=== PATIENT | male | born 1955 | race Caucasian/White ===

== ENCOUNTER → 2024-02-27 | Day surgery (SDC) | payer MEDICARE, MEDICAID ==
[~2024-02-27] VITALS: Ht 180.3 cm; Wt 94.8 kg
[~2024-02-27] MED LIST: ACET-2424; ACETAMINOPHEN 325MG TABLET PO PRN; AMOX1TAB16 PO; ASPI-1406 PO; ATEN-42 PO; ATOR40TA70 PO; CIPR-263 PO; CLOP-31 PO; COLL30OI TP; DIPHENHYDRAMINE 50MG/ML VIAL ONE; EMPA25TA PO; EZET10TA81; FENTANYL CITRATE/PF 50MCG/ML 2ML VIAL ONE; GABA-532 PO; HEPARIN 1000 UNITS/ML 10ML ONE; IODIXANOL 320MG/ML 100 ML BOTTLE IV ONE; LIDOCAINE HCL 1% 10 MG/ML 10ML VIAL ONE; LORA10TA7 PO; LOSA100T33 PO; METF-416 PO; MIDAZOLAM HCL 2 MG/2 ML VIAL ONE; ONDANSETRON HCL 4MG/2ML INJ IV PRN; PREG75CA PO; SEMA2PEN IJ; SULF1TAB48 PO
[2024-02-27] MEDS: SODIUM CHLORIDE 0.45% 500 ML IV SCH (08:31)
== END | disposition home or self-care (01) ==
LOC: CCL 07:30
PROVIDERS: ATTEND Specialist
DX: I25.119 Atherosclerotic heart disease of native coronary artery with unspecified angina pectoris (principal); I10 Essential (primary) hypertension; E78.5 Hyperlipidemia, unspecified; E11.51 Type 2 diabetes mellitus with diabetic peripheral angiopathy without gangrene; Z79.82 Long term (current) use of aspirin; Z79.84 Long term (current) use of oral hypoglycemic drugs; Z79.899 Other long term (current) drug therapy; Z98.890 Other specified postprocedural states
CPT/HCPCS: 82962; 93458; C1893; C1725; C1769 ×2; J3010; Q9967; J1200; J1644 ×2; J3490; J2250; Z7610 ×7; C1887; 99152; G0500

== ENCOUNTER 2025-08-23 20:39 | Inpatient (IN) | payer MEDICARE, MEDICAID ==
[~2025-08-23] VITALS: Ht 167.6 cm; Wt 99.8 kg
[~2025-08-23 20:39] MED LIST changes: -ACET-2424; -ACETAMINOPHEN 325MG TABLET PO PRN; -AMOX1TAB16 PO; -CIPR-263 PO; -COLL30OI TP; -DIPHENHYDRAMINE 50MG/ML VIAL ONE; -EMPA25TA PO; -EZET10TA81; +EZET10TA81 PO; -FENTANYL CITRATE/PF 50MCG/ML 2ML VIAL ONE; +GABA-1180 PO; -GABA-532 PO; -HEPARIN 1000 UNITS/ML 10ML ONE; -IODIXANOL 320MG/ML 100 ML BOTTLE IV ONE; -LIDOCAINE HCL 1% 10 MG/ML 10ML VIAL ONE; -LORA10TA7 PO; -MIDAZOLAM HCL 2 MG/2 ML VIAL ONE; -ONDANSETRON HCL 4MG/2ML INJ IV PRN; -SEMA2PEN IJ; +SEMA2PEN SUBCUT; -SULF1TAB48 PO
[2025-08-23 20:45] VITALS: O2SAT 97
[2025-08-23 21:20] LABS: BASOPHILS % 1.1 % (0.0-2.0); EOSINOPHILS % 1.3 % (0.0-5.0); HEMATOCRIT. 44.3 % (42.0-52.0); HEMOGLOBIN. 15.1 g/dL (14.0-18.0); LYMPHOCYTES % 19.1 % (20.0-50.0); MEAN PLATELET VOLUME 9.0 fl (7.4-10.4); MONOCYTES % 9.8 % (2.0-8.0); NEUTROPHILS % 68.7 % (40.0-76.0); PLATELET 182 x1000/uL (130-400); RED BLOOD CELL COUNT 4.66 mill/uL (4.7-6.1); RED CELL DISTRIBUTION WIDTH 13.2 % (11.6-14.6)
[2025-08-23] MEDS: HYDROCODONE/ACETAMINOPHEN 5/325MG TABLET PO ONE (21:21)
[2025-08-23] MEDS: METOPROLOL TARTRATE 5MG/5ML VIAL IV ONE (21:28)
[2025-08-23] MEDS: SODIUM CHLORIDE 0.9% 500 ML IV ONE (21:33)
[2025-08-23 21:36] LABS: CREATININE 0.9 mg/dL (0.6-1.3); TROPONIN I HIGH SENSITIVITY 7 ng/L (3.0-53); UREA NITROGEN BLOOD 8 mg/dL (9-23)
[2025-08-23 21:38] LABS: ASPARTATE AMINOTRANSFERASE 28 IU/L (<34); BILIRUBIN DIRECT 0.1 mg/dL (<=3.0); BILIRUBIN TOTAL 0.4 mg/dL (0.1-1.0); PROTEIN TOTAL 6.6 g/dL (6.0-8.3)
[2025-08-23] MEDS: SODIUM CHLORIDE 0.9% 1,000 ML IV ONE ×2 (22:16→22:27)
[2025-08-23] MEDS: PIPERACILLIN/TAZO 3.375G/50ML 50 ML IV ONE (22:27)
[2025-08-23] MEDS: VANCOMYCIN 1G PREMIX 200 ML IV ONE (22:55)
[2025-08-23 23:45] LABS: CLARITY URINE CLEAR (CLEAR); COLOR URINE YELLOW (YELLOW); GLUCOSE URINE 3+ (NEGATIVE); KETONES URINE TRACE (NEGATIVE); LEUKOCYTE ESTERASE URINE NEGATIVE (NEGATIVE); NITRITE URINE NEGATIVE (NEGATIVE); OCCULT BLOOD URINE NEGATIVE (NEGATIVE); PH URINE 6.0 (4.5-8.0); PROTEIN URINE NEGATIVE (NEGATIVE); SPECIFIC GRAVITY URINE 1.030 (1.005-1.030); UROBILINOGEN URINE 0.2 E.U./dL (0.2-1.0)
[2025-08-24 00:52] LABS: RBC URINE NONE SEEN /hpf (0-2); WBC URINE NONE SEEN /hpf (0-2)
[2025-08-24 00:53] LABS: BACTERIA URINE NONE SEEN; SQUAMOUS EPITHELIAL CELL URINE FEW /lpf (RARE/1+)
[2025-08-24 01:00] VITALS: BP 143/87; PULSE 111; RESP 20; TEMP 37.0296
[2025-08-24 04:00] VITALS: BP 123/70; PULSE 97; RESP 20; TEMP 36.7; O2SAT 98
[2025-08-24] MEDS ORDERED: VANCOMYCIN 500 MG in DEXT 5% WATER 100 ML IV SCH (04:30)
[2025-08-24] MEDS ORDERED: NALOXONE HCL 0.4MG/ML VIAL IV PRN (05:00)
[2025-08-24 08:00] VITALS: BP 146/84; PULSE 91; RESP 18; TEMP 36.5; O2SAT 100
[2025-08-24] MEDS: VANCOMYCIN 750MG/150ML (BAXTER) IV SCH (08:47)
[2025-08-24] MEDS: ENOXAPARIN 30MG/0.3ML SYR SUBCUT SCH (08:58)
[2025-08-24] MEDS: HYDROCODONE/ACETAMINOPHEN 5/325MG TABLET PO PRN (09:50)
[2025-08-24 11:47] LABS: PLATELET 147 x1000/uL (130-400); RED BLOOD CELL COUNT 4.34 mill/uL (4.7-6.1); RED CELL DISTRIBUTION WIDTH 13.2 % (11.6-14.6)
[2025-08-24 12:00] VITALS: BP 129/84; PULSE 98; RESP 18; TEMP 36.3; O2SAT 98
[2025-08-24 12:11] LABS: CREATININE 0.7 mg/dL (0.6-1.3); TRIGLYCERIDE 168 mg/dL (0-150); UREA NITROGEN BLOOD 8 mg/dL (9-23)
[2025-08-24 12:12] LABS: LDL CHOLESTEROL 118 mg/dL (5-100)
[2025-08-24] MEDS: PIPERACILLIN/TAZO 3.375G/50ML 50 ML IV SCH (13:54)
[2025-08-24 16:00] VITALS: BP 150/70; PULSE 84; RESP 18; TEMP 36.5; O2SAT 98
[2025-08-24] MEDS ORDERED: PREDNISOLONE 15 MG/5 ML ORAL SYRINGE PO SCH (18:30)
[2025-08-24] MEDS ORDERED: IBUPROFEN 600MG TABLET PO PRN (18:30)
[2025-08-24 20:00] VITALS: BP_SYST 154; BP_SYST 169; BP_DIAS 72; BP_DIAS 94; PULSE 100; PULSE 81; RESP 17; RESP 19; TEMP 36.8; TEMP 37; O2SAT 96; O2SAT 98
[2025-08-24] MEDS ORDERED: VANCOMYCIN 750MG/150ML (BAXTER) IV SCH (21:00)
[2025-08-24] MEDS: HYDROCODONE/ACETAMINOPHEN 10/325MG TABLET PO PRN (21:05)
[2025-08-24] MEDS: PREDNISONE 20MG TABLET PO SCH (21:20)
[2025-08-24] MEDS: LOSARTAN 50 MG TABLET PO SCH (21:21)
[2025-08-24] MEDS: INSULIN GLARGINE 100 UNITS/ML SUBCUT SCH (21:34)
[2025-08-25] VITALS: BP_SYST 130; BP_SYST 152; BP_DIAS 72; BP_DIAS 82; PULSE 99; RESP 18; TEMP 37.1; O2SAT 99
[2025-08-25 04:00] VITALS: BP 133/70; PULSE 95; RESP 18; TEMP 36.9; O2SAT 99
[2025-08-25 06:49] LABS: CREATININE 0.7 mg/dL (0.6-1.3); UREA NITROGEN BLOOD 7 mg/dL (9-23)
[2025-08-25 08:00] VITALS: BP 144/89; PULSE 125; RESP 20; TEMP 36.6; O2SAT 97
[2025-08-25 12:00] VITALS: BP 119/77; PULSE 116; RESP 20; TEMP 36.5; O2SAT 95
[2025-08-25 20:00] VITALS: BP 132/86; PULSE 90; RESP 18; TEMP 36.8
[2025-08-26] VITALS: BP 127/77; PULSE 99; RESP 18; TEMP 36; O2SAT 95
[2025-08-26 04:00] VITALS: BP 137/74; PULSE 93; RESP 18; TEMP 36.3; O2SAT 95
[2025-08-26 08:00] VITALS: BP 141/79; PULSE 84; RESP 18; TEMP 36.4; O2SAT 96
[2025-08-26 12:00] VITALS: BP 152/82; PULSE 99; RESP 18; TEMP 36.6; O2SAT 97
[2025-08-26 16:00] VITALS: BP 117/67; PULSE 98; RESP 18; TEMP 36.6; O2SAT 97
[2025-08-26 20:00] VITALS: BP 127/69; PULSE 99; RESP 18; TEMP 36.2; O2SAT 99
[2025-08-27] VITALS: BP 119/66; PULSE 85; RESP 18; TEMP 36.2; O2SAT 97
[2025-08-27 04:00] VITALS: BP 128/62; PULSE 90; RESP 18; TEMP 36.1; O2SAT 98
[2025-08-27 08:00] VITALS: BP 140/70; PULSE 86; RESP 20; TEMP 36.7; O2SAT 97
[2025-08-27] MEDS ORDERED: IBUP-1455 MT (09:46)
[2025-08-27] MEDS ORDERED: P20 MT (09:46)
[2025-08-27 12:00] VITALS: BP 132/67; PULSE 91; RESP 18; TEMP 36.7; O2SAT 95
[2025-08-27 13:21] VITALS: BP 137/80; PULSE 80; RESP 19; TEMP 98.9
== END 2025-08-27 15:40 | disposition home or self-care (01) | DRG 554 ==
LOC: ER 20:39 → 8WST 23:05 → EDBEDREQTM 23:07 → EDBEDREQ 23:07 → ENRESERV 23:31
PROVIDERS: ADMIT Internal Medicine; ATTEND Internal Medicine
DX: M17.12 Unilateral primary osteoarthritis, left knee (principal); E11.65 Type 2 diabetes mellitus with hyperglycemia; Z79.02 Long term (current) use of antithrombotics/antiplatelets; E66.9 Obesity, unspecified; I10 Essential (primary) hypertension; I25.10 Atherosclerotic heart disease of native coronary artery without angina pectoris; E78.00 Pure hypercholesterolemia, unspecified; R00.0 Tachycardia, unspecified; Z71.3 Dietary counseling and surveillance; Z68.35 Body mass index [BMI] 35.0-35.9, adult; Z79.84 Long term (current) use of oral hypoglycemic drugs; Z79.899 Other long term (current) drug therapy
CPT/HCPCS: 36415; 71045; 73560; 80048; 80061; 80076; 80202; 81003; 82962; 83036; 83605; 83880; 84145; 84443; 84484; 84550; 85025; 85027; 85379; 93005; 96365; 96367; 96375; 97162; 99291; J1650; J1815; J2543; J3373; J3490; J7030; J7040; J7512